=== PATIENT | female | born 1950 | race Caucasian/White ===

== ENCOUNTER 2017-01-18 14:05 | Emergency (ER) | payer OTHER ==
[~2017-01-18] VITALS: Ht 157.5 cm; Wt 48.1 kg
[~2017-01-18 14:05] MED LIST: ZITHROMAX Z-PA250 M1 PO
[2017-01-18 14:59] VITALS: BP 118/80
--- NOTE | 2017-01-18 14:59 | ED GENERAL ADULT ---
History of Present Illness General Chief Complaint: General Adult Stated Complaint: "I HAVE HIGH BP " Source: patient Exam Limitations: no limitations Vital Signs & Intake/Output Vital Signs & Intake/Output Vital Signs Date Time Temp Pulse Resp B/P B/P Pulse O2 O2 Flow FiO2 Mean Ox Delivery Rate 01/18 1459 118/80 01/18 1436 98 01/18 1415 97.6 93 18 154/80 99 Room Air Room Air ED Intake and Output 01/19 0000 01/18 1200 Intake Total Output Total Balance Patient 106 lb Weight Weight Reported by Patient Measurement Method Allergies Coded Allergies: MDX - Methylprednisolone (From SOLU-MEDROL) (Severe, RASH 08/21/14) MDX - Contrast Media, Iodine Relate (CONTRAST MEDIA, IODINE RELATED) ( Intermediate, HIVES 08/16/13) MDX - PCN (penicillin) (PCN (PENICILLIN)) (Intermediate, HIVES 08/16/13) Reconcile Medications Azithromycin (Zithromax Z-Bandar) 250 MG CAP 1 DP PO AD bronchitis 2 the first day followed by 1 for days 2-5 Triage Note: TRIAGE: 66 Y/O FEMALE PRESENTS C/O ELEVATED BP AT HOME. IN TRIAGE MANUAL BP READING 154/80. DENIES OTHER COMPLAINTS. Triage Nurses Notes Reviewed? yes HPI: 66-year-old female arrived to triage to room 4 for evaluation of elevated blood pressure she was noted to have at home. She was checking her blood pressure on a automatic cuff and her blood pressure readings have been 150s to 180s systolic over 90s to 100 diastolic. She was very nervous so she came to the emergency department for evaluation. She denies any headache, chest pain, shortness of breath, lightheadedness, dizziness or palpitations. She denies any visual changes. Blood pressure here in emergency department rechecked by me manually 118/80 in her right arm. She reports she has been going through a lot of stress and anxiety. She has a history of lung cancer currently not on any chemotherapy or radiation treatment. She also has a history of PE on warfarin therapy. She takes oxycodone every evening for leg pain. She reports she has not been able to sleep and months. Has a history of insomnia. She has taken melatonin with no relief. She has been given a prescription for Ambien but has not taken it yet. She reports she gets pains in her legs at night only when she goes to sleep but not during the day when she is ambulatory. It wakes her up from sleep when the pain is horrific. She has taken oxycodone with minimal relief. Her biggest concern today is her inability to sleep in her bilateral leg pain at night only. (KULDEEP BOOGIE APRN) Past History Travel History Traveled to [place] past 21 day No Medical History Any Pertinent Medical History? see below for history Neurological: NONE EENT: NONE Cardiovascular: hypertension, hyperlipidemia Respiratory: pulmonary embolism Cancer(s): lung cancer History of MRSA: No History of VRE: No History of CDIFF: No Surgical History Surgical History: non-contributory Psychosocial History Who do you live with Spouse Services at Home None What is your primary language Guamanian Tobacco Use: Current Daily Use Daily Tobacco Use Amount/Type: => 5 Cigarettes daily ETOH Use: occasional use Illicit Drug Use: denies illicit drug use Family History Family History, If Any: FATHER FH: heart disease Hx Contributory? No (KULDEEP BOOGIE APRN) Review of Systems Review of Systems Constitutional: Reports: see HPI. EENTM: Denies: no symptoms. Respiratory: Denies: no symptoms. Cardiovascular: Denies: no symptoms. GI: Denies: no symptoms. Genitourinary: Denies: no symptoms. Musculoskeletal: Denies: no symptoms. Skin: Denies: no symptoms. Neurological/Psychological: Reports: anxiety, depressed. Hematologic/Endocrine: Denies: no symptoms. Immunologic/Allergic: Denies: no symptoms. (KULDEEP BOOGIE APRN) Physical Exam Physical Exam General Appearance: no apparent distress, alert, awake, thin Head: atraumatic, normal appearance Eyes: Bilateral: normal appearance, PERRL, EOMI. Ears, Nose, Throat: normal pharynx, normal ENT inspection Neck: normal inspection Respiratory: normal breath sounds, chest non-tender, no respiratory distress Cardiovascular: regular rate/rhythm Peripheral Pulses: 2+ radial (R), 2+ radial (L) Gastrointestinal: normal bowel sounds, soft, non-tender Neurologic/Psych: no motor/sensory deficits, awake, alert, oriented x 3, normal gait, normal mood/affect Skin: intact, normal color, warm/dry Core Measures ACS in differential dx? No CVA/TIA Diagnosis: No Severe Sepsis Present: No Septic Shock Present: No (KULDEEP BOOGIE APRN) Progress Differential Diagnoses I considered the following diagnoses in my evaluation of the patient: Insomnia, arterial insufficiency, electrolyte imbalance. Plan of Care: Blood pressure was not elevated here in the emergency department. Injected her to correlate manual blood pressure reading with automatic blood pressure reading. Instructed her to follow-up with Dr. Montalvo to correlate readings. Also she could be having labile blood pressures related to anxiety and inability to sleep. Also discussed possible causes of bilateral leg pain including restless leg syndrome and arterial insufficiency. She will follow up with Dr. Stevens to discuss the possibility of an arterial ultrasound. She can also discuss this with Alber Montalvo MD. Initial ED EKG: none Comments: Discussed with patient and her at length about insomnia, hypertension, abnormal readings due to automatic blood pressure cuff, bilateral leg pain- claudication. She will follow up with Alber Montalvo MD and Dr. Stevens has discussed and are visit. Spent about half hour to 45 minutes discussing each of these issues. Further instructions given on discharge sheet. (KULDEEP BOOGIE APRN) Departure Departure Time of Disposition: 1524 Disposition: HOME OR SELF CARE Condition: Stable Clinical Impression Primary Impression: Elevated blood pressure reading Referrals: ALBER MONTALVO MD (PCP/Family) Additional Instructions: Please correlate blood pressure cuff at home with a manual blood pressure. Please take it to Alber Montalvo MD's office. May have to use a wrist blood pressure cuff. Please take Ambien has prescribed to you, but cut her dose in half or quarter. You can take melatonin with Ambien also this will not interact with each other. In regards to your legs please follow-up with Dr. Stevens for further evaluation of the possibility of an artery problem. You are having pain in her legs at night which could be a symptom of pain of arterial insufficiency. You can try magnesium 250 mg [id number] for cramping in the legs. Please make sure you hydrate herself during the day. 6-8 glasses of water especially when you are drinking 2-3 cups of caffeine. Follow-up with Alber Montalvo MD this week and follow-up with Dr. Stevens to discuss leg pain. Departure Forms: Customer Survey General Discharge Information (KULDEEP BOOGIE APRN) PA/[facility] Co-Sign Statement Statement: ED Attending supervision documentation- [x] I saw and evaluated the patient. I have also reviewed all the pertinent lab results and diagnostic results. I agree with the findings and the plan of care as documented in the PA's/[facility]'s documentation. [] I have reviewed the ED Record and agree with the PA's/[facility]'s documentation. [] Additions or exceptions (if any) to the PAs/[facility]'s note and plan are summarized below: [] (CODEY PARSON,DOMINIQUE Padilla) Critical Care Note Critical Care Note Critical Care Time: non-applicable (KULDEEP BOOGIE APRN)
== END 2017-01-18 15:38 ==
LOC: ERH 14:05
DX: I10 Essential (primary) hypertension (principal)
CPT/HCPCS: 99282